=== PATIENT | male | born 1980 | race Caucasian/White ===

== ENCOUNTER 2019-07-12 17:46 | Emergency (ER) | payer BC, OTHER ==
[~2019-07-12] VITALS: Ht 182 cm; Wt 111.0 kg
--- OUTSIDE RECORDS SUMMARY | 2019-07-12 17:54 | XMS REPORT ---
Author Author Florentino Brock [facility] eClinicalWorks Address Unknown Phone Unavailable Care Team Providers Care Framing Inspector Name Role Phone Erlin Brock Unavailable Allergies No Known Allergies Problems Problem Type Condition ICD-9 Code Onset Dates Condition Statu s Problem Mitral valve prolapse 424.0 Active Medications No Known Medications Results No Known Results Summary Purpose eClinicalWorks Submission
--- OUTSIDE RECORDS SUMMARY | 2019-07-12 17:54 | XMS REPORT ---
Author Author Florentino Obando Organization eClinicalWorks Address Unknown Phone Unavailable Care Team Providers Care Brazer Induction Name Role Phone Romulo Obando CP Unavailable Allergies, Adverse Reactions, Alerts Substance Reaction Event Type N.K.D.A. Info Not Available Non Drug Allergy Problems Problem Type Condition ICD-9 Code Onset Dates Condition Statu s Assessment Mitral valve prolapse 424.0 Active Assessment Hypertension 401.9 Active Problem Mitral valve prolapse 424.0 Active Medications Medication Code System Code Instructions Start Date End Date Status Dosage Lisinopril [facility] [place] [address]88 10 MG as directed Once a day Dec 03 14 Active as directed Procedures Procedure Coding System Code Date OFFICE VISITEST PT CPT-4 17373 Dec 03, 2013 Vital Signs Date/Time: Dec 03, 2013 Blood Pressure Systolic 160 mm Hg Height 72 in Weight 230.0 lbs BMI 31.19 Index Blood Pressure Diastolic 90 mm Hg Results No Known Results Summary Purpose eClinicalWorks Submission
--- OUTSIDE RECORDS SUMMARY | 2019-07-12 17:54 | XMS REPORT ---
Author Author Florentino Obando Organization eClinicalWorks Address Unknown Phone Unavailable Care Team Providers Care Millinery Designer Name Role Phone Romulo Obando Unavailable Allergies No Known Allergies Problems Problem Type Condition ICD-9 Code Onset Dates Condition Statu s Assessment Mitral valve prolapse 424.0 Active Problem Mitral valve prolapse 424.0 Active Medications No Known Medications Procedures Procedure Coding System Code Date ECHOCARDIOGRAPHY, TRANSTHORACIC, REAL-TI ME WITH IMAGE DOCUMENTATION (2D), INCLUDES M-MODE RECORDING, WHEN PERFORMED, COMPLETE, WITH CPT-4 93 306 Dec 09, 2013 Results No Known Results Summary Purpose eClinicalWorks Submission
--- OUTSIDE RECORDS SUMMARY | 2019-07-12 17:54 | XMS REPORT | Continuity of Care Document ---
Author Author [facility] Organization [facility] Address Unknown Phone Unavailable Care Team Providers Care Transportation Supervisor Name Role Phone ADELA GIRARD M.D. PCP Insurance Providers Payer Name Policy Number Subscriber Name Relationship Self Pay Insurance Florentino Charles 01 Self / S sara As Patient Chief Complaint and Reason for Visit Chief Complaint Hypertension Reason for Visit Hypertensive urgency Problems Medical Problems Problem Onset Date Status Hypertensive urgency Unknown Active Surgical Problems Problem Onset Date Recorded Date/Time Status Status post knee surgery Unknown 10/11/2013 9:16am Activ e Medications Medication Dose Route Sig Days/Qty Instructions Order Date Disc ontinued Date Status Amoxicillin & Pot Clavulanate 875 Mg PO TWICE A DAY 7 Days 11/26/11 10/11/13 Discontinued Social History Social History Problem Response Recorded Date/Stevie e Smoking Status Never smoker 12/01/2013 7:38am Query Response Start Date Stop Date Smoking Status Never smoker Hospital Discharge Instructions No hospital discharge instructions. Plan of Care Discharge Date 12/01/13 9:54am Disposition 01 HOME, SELF-CARE Condition at Discharge Stable Instructions/Education Provided Chronic Hypertension ( ED) Prescriptions See Medications Section Referrals ADELA GIRARD M.D. Functional Status No functional status results. Allergies, Adverse Reactions, Alerts Allergen Type Severity Reaction Status Last Updated No Known Allergies Active Immunizations No immunization records. Vital Signs Acute Vital Signs Vital Response Date/Time Blood Pressure 153/80 mm Hg Blood Pressure Mean 104 mm Hg Temperature (Fahrenheit) 98.2 degrees F (96.0 - 99.9) Temperature (Calculated Celsius) 36.50142 degrees C Temperature Source Oral Pulse Pulse Rate: ED 62 bpm Respiratory Rate 16 breaths per minute (10 - 20) Height (Feet) 6 ft Height (Inches) 0 in. Weight (Pounds) 219 lbs Ambulatory Vital Signs Vital Response Date/Time Height 5 ft 11 in 10/11/2013 8:57am Weight 237 lbs 10/11/2013 8:57am Blood Pressure 130/85 mm Hg 10/11/2013 8:57am Body Surface Area 2.35 m2 10/11/2013 8:57am Body Mass Index 33.1 kg/m2 10/11/2013 8:57am Results Test Source Date Result Interp. Ref. Range Comments Troponin I December 01, 2013 8:34am 0.00 ng/mL N 0.0- 0.02 Alanine Aminotransferase (ALT/SGPT) November 14, 2001 3:25p m 18 U/L N 5-40 COMMENTS? ROOM 1 Albumin November 14, 2001 3:25pm 4.7 gm/dL N 3.2- 5.0 COMMENTS? ROOM 1 Albumin/Globulin Ratio November 14, 2001 3:25pm 1.7 N 1.4-2.4 COMMENTS? ROOM 1 Alkaline Phosphatase November 14, 2001 3:25pm 59 U/L N 35-125 COMMENTS? ROOM 1 Amylase Level November 14, 2001 3:25pm 42 U/L N 16-108 COMMENTS? ROOM 1 Anion Gap December 01, 2013 8:34am 10.0 N 6-13 Aspartate Amino Transf (AST/SGOT) November 14, 2001 3:25pm 16 U/L N 5-40 COMMENTS? ROOM 1 BUN/Creatinine Ratio December 01, 2013 8:34am 20.2 Band Neutrophils November 14, 2001 3:25pm 1.0 % N 0-7 COMMENTS? ROOM 1 Basophils # (Auto) December 01, 2013 8:34am 0.1 K/uL N 0-0.2 Basophils (%) (Auto) December 01, 2013 8:34am 0.5 % N 0-1 Blood Urea Nitrogen December 01, 2013 8:34am 21 mg/dL N 8-25 Calcium Level December 01, 2013 8:34am 9.0 mg/dL N 8. 2-10.6 Carbon Dioxide Level December 01, 2013 8:34am 25 mEq/L N 22-34 Chloride Level December 01, 2013 8:34am 104 mEq/L N 9 8-116 Cholesterol Level October 25, 2011 12:00am 201 mg/dL H 120-200 Cholesterol Ratio (LDL/HDL) October 25, 2011 12:00am 4.674 Creatinine December 01, 2013 8:34am 1.04 mg/dL N 0.9- 1.6 Eosinophils # (Auto) December 01, 2013 8:34am 0.2 K/uL N 0-0.8 Eosinophils (%) (Auto) December 01, 2013 8:34am 1.6 % N 0-7.0 Globulin November 14, 2001 3:25pm 2.8 gm/dL N 2.0- 3.0 COMMENTS? ROOM 1 Glomerular Filtration Rate Calc December 01, 2013 8:34am > 60 .00 mL/min MULTIPLY RESULT BY 1.210 IF THE PATIENT IS -AMERICANUnits are mL/min/1.73 m2 > 60 Normal kidney function 30-59 Moderately decreased kidney fun ction 15- Severely decreased kidney funct ion <15 End-stage kidney failure HDL Cholesterol October 25, 2011 12:00am 43 mg/dL N 40-80 Hematocrit December 01, 2013 8:34am 41.7 % N 40.0- 54.0 Hemoglobin December 01, 2013 8:34am 14.3 g/dL N 14.0- 18.0 Immature Blood Cells March 19, 2012 12:00am 0.1 K/uL N 0-0.4 Immature Granulocyte # (Auto) December 01, 2013 8:34am 0.04 K /uL N 0-0.40 Immature Granulocyte % (Auto) December 01, 2013 8:34am 0.4 % N 0-0.5 LDL Cholesterol October 25, 2011 12:00am 130 mg/dL H 25-100 Lab Scanned Report November 14, 2011 9:55am Lab Scann ed Report [id number] Lymphocytes # (Auto) December 01, 2013 8:34am 2.5 K/uL N 0.9-5.2 Lymphocytes (%) (Auto) December 01, 2013 8:34am 25.7 % N 16.0-44.0 Lymphocytes (Manual) November 14, 2001 3:25pm 8.0 % PL 21.0-51.0 COMMENTS? ROOM 1 Mean Corpuscular Hemoglobin December 01, 2013 8:34am 30.2 pg N 26.0-33.0 Mean Corpuscular Hemoglobin Concent December 01, 2013 8:34a m 34.3 g/dL N 31.0-36.0 Mean Corpuscular Volume December 01, 2013 8:34am 88.0 fL N 80.0-94.0 Mean Platelet Volume December 01, 2013 8:34am 9.4 fL N 7.0-11.0 Monocytes # (Auto) December 01, 2013 8:34am 0.8 K/uL N 0.16-1.0 Monocytes (%) (Auto) December 01, 2013 8:34am 8.4 % N 2.0-9.0 Monocytes (Manual) November 14, 2001 3:25pm 5.0 % N 2.0-9.0 COMMENTS? ROOM 1 Neutrophils November 14, 2001 3:25pm 86.0 % PH 42 .0-75.0 COMMENTS? ROOM 1 Neutrophils # (Auto) December 01, 2013 8:34am 6.1 K/uL N 1.9-8.0 Neutrophils (%) (Auto) December 01, 2013 8:34am 63.4 % N 42.0-75.0 Nucleated Red Blood Cells # December 01, 2013 8:34am 0.00 K/u L N 0.0-0.012 Nucleated Red Blood Cells % December 01, 2013 8:34am 0.0 /100 WBC N 0-0 Platelet Count December 01, 2013 8:34am 210 K/uL N 1 30-400 Platelet Estimate November 14, 2001 3:25pm Normal NORMAL COMMENTS? ROOM 1 Potassium Level December 01, 2013 8:34am 4.0 mEq/L N 3.5-5.1 RDW Standard Deviation December 01, 2013 8:34am 41.0 fL N 35.1-43.9 Random Glucose December 01, 2013 8:34am 93 mg/dL N 6 5-115 Red Blood Count December 01, 2013 8:34am 4.74 M/uL N 4.60-5.40 Red Cell Distribution Width December 01, 2013 8:34am 12.7 % N 11.5-14.5 Sodium Level December 01, 2013 8:34am 135 mEq/L N 133 -145 Total Bilirubin November 14, 2001 3:25pm 1.2 mg/dL N 0.1-1.3 COMMENTS? ROOM 1 Total Protein November 14, 2001 3:25pm 7.5 gm/dL N 6.0-8.4 COMMENTS? ROOM 1 Triglycerides Level October 25, 2011 12:00am 139 mg/dL N 45-150 VLDL Cholesterol October 25, 2011 12:00am 27.8 N 5-40 White Blood Count December 01, 2013 8:34am 9.6 K/uL N 5.0-10.0 Procedures No known history of procedures. Encounters Encounter Location Date/Time Departed Emergency Room [facility] 4 7:38am Office Visit CHRIS WHITE 10/11/13 9:30am Recent Diagnosis
--- OUTSIDE RECORDS SUMMARY | 2019-07-12 17:54 | XMS REPORT ---
Author Author Florentino Brock [facility] eClinicalWorks Address Unknown Phone Unavailable Care Team Providers Care Legal Specialist Name Role Phone Erlin Brock CP Unavailable Allergies, Adverse Reactions, Alerts Substance Reaction Event Type N.K.D.A. Info Not Available Non Drug Allergy Problems Problem Type Condition ICD-9 Code Onset Dates Condition Statu s Assessment Finger pain 729.5 Active Problem Mitral valve prolapse 424.0 Active Medications No Known Medications Procedures Procedure Coding System Code Date OFFICE VISITEST PT CPT-4 17810 Jan 04, 2014 FINGER 3 VIEW CPT-4 74216 Jan 04, 2014 Vital Signs Date/Time: Jan 04, 2014 Blood Pressure Systolic 126 mm Hg Height 72 in Weight 232 lbs BMI 31.46 Index Blood Pressure Diastolic 82 mm Hg Results Name Result Date Reference Range Unit X ray : Finger 3 view Summary Purpose eClinicalWorks Submission
--- OUTSIDE RECORDS SUMMARY | 2019-07-12 17:54 | XMS REPORT ---
Author Author Florentino Brock [facility] eClinicalWorks Address Unknown Phone Unavailable Care Team Providers Care Diesel Mechanic Apprentice Name Role Phone Erlin Brock Unavailable Allergies No Known Allergies Problems No Known Problems Medications No Known Medications Results No Known Results Summary Purpose eClinicalWorks Submission
--- OUTSIDE RECORDS SUMMARY | 2019-07-12 17:54 | XMS REPORT | Continuity of Care Document ---
Author Author [facility] Address [address] [place] [address] Phone Unavailable Care Team Providers Care Copper Plate Printer Name Role Phone Mer GIRARD PCP Allergies, Adverse Reactions, Alerts No known allergies. Medications Medication Status Dose Units Route Sig Qty Days Start Date End Date Instructions Lisinopril Active 10 Daily Acetaminophen/Hydrocodone Bitart Discontinued 1 Every 6 Hours As Needed for Pain December 30, 2013 5:31pm March 15, 2019 for pain Amoxicillin & Pot Clavulanate Discontinued 875 Twice A Day 7 November 26, 2011 5:04pm October 11, 2013 Cephalexin Discontinued 500 Three Times A Day for . December 30, 2013 5:31pm March 15, 2019 Problems Active Problems Medical Problem Onset Date Status Hypertensive urgency Active Hypertensive urgency Active Finger laceration Active Finger laceration involving tendon Activ e Status post knee surgery Active Procedures Procedure Date Performed Status Computed tomography of heart without con trast with quantitative evaluation of coronary calcium February 05, 2018 completed Relevant Diagnostic Tests and/or Laboratory Data No known relevant diagnostic tests and/or laboratory data. Health Concerns No known health concerns documented Encounters Encounter Location(s) Arrival/Admit Date Discharge/Depart Date Provider(s) Departed Clinic [facility] March 15, 2019 8:49am March 15, 2019 9:35am OLIVERIO CAI PA-C Registered Referred [facility] February 05 8 2:38pm OTHER, DOCTOR Assessments No Assessments Information Available Functional Status No Functional Status information available Goals No Goals Information Available Immunizations No Immunization Information Available Mental Status No Mental Status Information Available Medical Equipment No Medical Equipment Information available Insurance Providers Guarantor Florentino Charles Address [address] [place] [address] Contact Info. Home Phone: Payer Policy Id Coverage Id Subscriber's Name Subscriber Id Effect pascale Date Expiration Date [facility] [id number] Florentino Charles 2011 Social History Smoking Status Status Date of Observation Never smoked tobacco (finding) December 30, 2013 4:2 1pm Observation Status Observation Response Date of Response Smoking Status Never smoker December 30, 2013 4:21pm Assigned Sex Male Vital Signs Vital Reading Result Reference Range Collection Date/ Time Body Temperature 98.0 [degF] (96.0 - 99.9) March 15, 020 9:07am Body Temperature 36.61896 Love March 15 020 9:07am Height 1.0 [in_i] March 15 9:07am Weight 227.0 [lb_av] March 15 9:07am BMI (Body Mass Index) 30.02 kg/m2 March 152019 9:07am Height 71 [in_i] March 15 9:07am Height 180.34 cm March 15 9:07am Weight 237 [lb_av] March 15 9:07am Weight 107.501 kg March 15 9:07am BP Systolic 130 mm[Hg] March 15 9:07am BP Diastolic 85 mm[Hg] March 15 9:07am Body surface area 2.35 m2 March 15, 2019 9:07am BMI (Body Mass Index) 33.1 kg/m2 March 152019 9:07am Hospital Discharge Instructions Additional Instructions Discharge Instructions Provider Instructions Dismiss home You were seen today by OLIVERIO CAI PA-C Follow up with Primary Care Physician in 3-7 days or sooner if your symptoms worsen. PCP Information Erlin Girard M.D. Erlin Girard M.D. , Pt given verbal instructions, declined written copy of instructions
--- OUTSIDE RECORDS SUMMARY | 2019-07-12 17:54 | XMS REPORT ---
Author Author Florentino Brock [facility] Address [address] [place] [address] Care Team Providers Care Tool Storage Attendant Name Role Phone Erlin Brock Unavailable PROBLEMS Type Condition ICD9-CM Code COT50-RD Code Onset Dates Condition S tatus SNOMED Code Problem Mitral valve prolapse 424.0 Active [id number] ALLERGIES Unknown Allergies SOCIAL HISTORY No smoking Hx information available PLAN OF CARE VITAL SIGNS MEDICATIONS Unknown Medications RESULTS No Results PROCEDURES No Known procedures IMMUNIZATIONS No Known Immunizations
--- OUTSIDE RECORDS SUMMARY | 2019-07-12 17:55 | XMS REPORT | Continuity of Care Document ---
Author Organization Unknown Address Unknown Phone Unavailable Allergies Active Description Code Type Severity Reaction Onset Reported/Identified Relationship to Patient Clinical Status Yes No Known Allergies [id number] Dr coburn Allergy N/A N/A Yes No Known Drug Allergies No Kno wn Drug Allergies Drug Allergy Unknown N/A 05/08/2009 Yes No Known Intolerances No Known Intoler ances Drug Allergy Unknown N/A 010 Yes No Allergy Information Drug Allergy N/A N/A 12/06/2010 Yes No Known Allergies No Known Allergies Drug Allergy Unknown N/A 07/29/2016 Yes No Known Drug Allergy Drug Allergy Unknown N/A 01/25/2019 Medications Medication Packaging Start Date St op Date Route Dosage Sig Cipro 500 mg tablet Tablet 08/01/2016 500 mg chavez e 1 (one) Tablet by Oral route daily oxyCODONE 10 mg tablet Table t 08/01/2016 10 mg take 1 (one) Tablet by Oral route daily as needed DOCUSATE SODIUM 01/22/2019 01/22/2019 BIDPRN ACETAMINOPHEN 01/22/2019 Q4HPRN ACETAMINOPHEN 01/22/2019 Q4HPRN SODIUM CHLORIDE 0.9 % 01/22/2019 01/22/2019 PRNIV ALUM-MAG HYDROXIDE-SIMETH 01/22/2019 01/22/2019 Q4HPRN MAGNESIUM HYDROXIDE 01/22/2019 01/22/2019 HSPRN ASPIRIN 01/23/20 19 01/22/2019 ONCE MIDAZOLAM 201801/22/2019 ONCE fentaNYL CITRATE (PF) 01/22/2019 01/22/2019 ONCE aspirin 325 mg tablet box 01/25/2019 02/26/2019 325 mg take 1 (one) Tablet by Oral route daily DOCUSATE SODIUM 01/28/2019 02/03/2019 BIDPRN ACETAMINOPHEN 02/02/2019 Q4HPRN ACETAMINOPHEN 02/03/2019 Q4HPRN ALUM-MAG HYDROXIDE-SIMETH 01/28/2019 02/03/2019 Q4HPRN MAGNESIUM HYDROXIDE 01/28/2019 02/03/2019 HSPRN ASPIRIN 01/29/2001/29/2019 QD ASPIRIN 01/30/2002/03/2019 0700 BUMETANIDE 01/3002/03/2019 QD POTASSIUM CHLORIDE 01/30/2019 01/31/2019 QD POTASSIUM CHLORIDE 01/31/2019 02/03/2019 0700 ACETAMINOPHEN 02/03/2019 Q4HPRN LIDOCAINE HCL 2% 02/02/2019 02/03/2019 PRN ZOLPIDEM 019 02/03/2019 HSPRNRX 1 SODIUM CHLORIDE 0.9 % 02/02/2019 02/03/2019 PRNIV MUPIROCIN 201802/03/2019 [id number] METOPROLOL TARTRATE 02/03/2019 02/03/2019 PREHEART6 MORPHINE 02/05/2019 [id number] N HYDROMORPHONE (PF) 02/03/2019 02/07/2019 [id number] fentaNYL CITRATE (PF) 02/03/2019 02/04/2019 [id number] IPRATROPIUM-ALBUTEROL 02/03/2019 02/07/2019 QIDRT ACETAMINOPHEN 02/07/2019 Q4HPRN SODIUM CHLORIDE 0.9 % 02/03/2019 02/05/2019 PRNIV SODIUM CHLORIDE 0.9 % 02/03/2019 02/05/2019 PRNIV SODIUM CHLORIDE 0.9 % 02/03/2019 02/04/2019 PRNIV DOPAMINE IN D5W 02/03/2019 02/05/2019 PRNIV LIDOCAINE (PF) 2% 02/03/2019 02/05/2019 PRN NITROGLYCERIN IN D5W 02/03/2019 02/05/2019 PRNIV DEXTROSE 5% IN WATER (D5W) 02/03/2019 02/05/2019 PRNIV HYDROCODONE-ACET 5-325MG 02/03/2019 02/07/2019 Q3HPRN SODIUM CHLORIDE 0.9 % 02/03/2019 02/05/2019 FLUSHER CALCIUM GLUCONATE 02/03/2019 02/05/2019 PRN ONDANSETRON HCL 02/03/2019 02/07/2019 Q6HPRN SODIUM CHLORIDE 02/03/2019 02/05/2019 PRNIV POTASSIUM CHLORIDE 02/03/2019 02/05/2019 PRN MAGNESIUM SULFATE IN D5W 02/03/2019 02/07/2019 PRN DEXTROSE 50% IN WATER (D50W) 02/03/2019 02/07/2019 PRN METOCLOPRAMIDE 1 04/06/2018 02/07/2019 Q6HPRN ALUM-MAG HYDROXIDE-SIMETH 02/03/2019 02/07/2019 Q4HPRN PANTOPRAZOLE 02/05/2019 QDPRN INSULIN (REGULAR) 02/03/2019 02/07/2019 PRN ALBUMIN, HUMAN 5% 500ML 02/03/2019 02/05/2019 PRN BISACODYL 201802/07/2019 PRN MAGNESIUM HYDROXIDE 02/03/2019 02/07/2019 PRN PROPOFOL 019 02/03/2019 C SODIUM CHLORIDE 0.9 % 02/03/2019 02/05/2019 PRNIV PANTOPRAZOLE 02/07/2019 ACB ASPIRIN 02/04/20 19 02/07/2019 0700 CEFAZOLIN 201802/05/2019 Q8H POLYETHYLENE GLYCOL 3350 02/03/2019 02/07/2019 QD SENNOSIDES 02/0302/07/2019 QD METOCLOPRAMIDE 1 04/06/2018 02/05/2019 Q6SET DOCUSATE SODIUM 02/03/2019 02/07/2019 BID METOPROLOL TARTRATE 02/03/2019 02/04/2019 BID SODIUM CHLORIDE 0.9 % 02/03/2019 02/03/2019 ONCE AMIODARONE IN DEXTROSE 5% 02/03/2019 02/04/2019 C AMIODARONE IN DEXTROSE 5% 02/04/2019 02/04/2019 PRNIV FUROSEMIDE 02/0402/04/2019 ONCE HEPARIN, PORCINE (PF) 02/04/2019 02/07/2019 Q12H INSULIN NOVOLOG 02/04/2019 02/04/2019 ONCE FUROSEMIDE 02/0402/04/2019 ONCE INSULIN NOVOLOG 02/04/2019 02/04/2019 ONCE METOCLOPRAMIDE 1 04/08/2018 02/07/2019 Q6HPRN INSULIN NOVOLOG 02/05/2019 02/05/2019 TIDWM FUROSEMIDE 02/0502/07/2019 BID4PM KETOROLAC 201802/05/2019 ONCE METOPROLOL TARTRATE 02/05/2019 02/06/2019 BID INSULIN NOVOLOG 02/05/2019 02/05/2019 TIDWM POTASSIUM CHLORIDE 02/06/2019 02/06/2019 ONCE METOPROLOL TARTRATE 02/06/2019 02/06/2019 ONCE FUROSEMIDE 02/0602/06/2019 ONCE KETOROLAC 201802/07/2019 Q6H METOPROLOL TARTRATE 02/06/2019 02/07/2019 BID POTASSIUM CHLORIDE 02/07/2019 02/07/2019 ONCE POTASSIUM CHLORIDE 02/07/2019 02/07/2019 ONCE metoprolol tartrate 25 mg tablet Tablet 02/26/2019 25 mg take 0.5 (1/2) Tablet by Oral route two times per day HYDROcodone 5 mg-acetaminophen 325 mg tabl et Tablet 02/26/2019 03/02/2019 5-325 mg take 1 (one) Tablet by Oral route every 4 to 6 hours as needed Problems Date Dx Coded Attending Type Code Diagnosis Diagnosed By 06/02/2013 Final 719.06 JOINT EFFUSION-LOWER LEG 06/02/2013 Admitting 719.46 JOINT PAIN-LOWER LEG 07/30/2016 BRAULIO HILL N13.2 Hydronephrosis with renal and ureteral calculous obstruction BRAULIO HILL 07/30/2016 BRAULIO HILL N20.1 Calculus of ureter BRAULIO HILL 07/30/2016 BRAULIO HILL N R94.4 Abnormal results of kidney function studies BRAULIO HILL 07/30/2016 BRAULIO HILL N13.2 Hydronephrosis with renal and ureteral calculous obstruction BRAULIO HILL 07/30/2016 BRAULIO HILL N20.1 Calculus of ureter BRAULIO HILL 08/22/2016 BRAULIO HILL N N20.1 Calculus of ureter TONY ELMORE 08/22/2016 BRAULIO HILL Z46.6 Encounter for fitting and adjustment of urinary device TONY ELMORE 09/11/2016 W 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, bilateral 09/12/2016 W 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, bilateral 02/26/2019 Khicha, Sigifredo I34.0 Nonrheumatic mitral (valve) insufficiency Khicha, Sigifredo 02/26/2019 Khicha, Sigifredo I50.9 Heart failure, unspecified Khicha, Sigifredo 02/26/2019 Khicha, Sigifredo I34.0 Nonrheumatic mitral (valve) insufficiency Khicha, Sigifredo 02/26/2019 Khicha, Sigifredo I50.9 Heart failure, unspecified Khicha, Sigifredo 03/01/2019 Khicha, Sigifredo I34.0 Nonrheumatic mitral (valve) insufficiency Khicha, Sigifredo 03/01/2019 Khicha, Sigifredo I50.9 Heart failure, unspecified Khicha, Sigifredo 03/01/2019 Khicha, Sigifredo I34.0 Nonrheumatic mitral (valve) insufficiency Khicha, Sigifredo 03/01/2019 Khicha, Sigifredo I50.9 Heart failure, unspecified Khicha, Sigifredo 03/03/2019 Khicha, Sigifredo I10 Essential (primary) hypertension Khicha, 03/03/2019 Khicha, Sigifredo I34.0 Nonrheumatic mitral (valve) insufficiency Khicha, Sigifredo 03/03/2019 Khicha, Sigifredo M19.90 Unspecified osteoarthritis, unspecified site Khicha, Sigifredo 03/03/2019 Khicha, Sigifredo Z82.49 Family history of ischemic heart disease and other diseases of the circulatory system Khicha, Sigifredo 03/03/2019 Khicha, Sigifredo Z87.891 Personal history of nicotine dependence Khicha, 03/04/2019 Khicha, Sigifredo I10 Essential (primary) hypertension Khicha, Sigifredo 03/04/2019 Khicha, Sigifredo I34.0 Nonrheumatic mitral (valve) insufficiency Khicha, Sigifredo 03/04/2019 Khicha, Sigifredo M19.90 Unspecified osteoarthritis, unspecified site Khicha, Sigifredo 03/04/2019 Sigifredo Jordan Z82.49 Family history of ischemic heart disease and other diseases of the circulatory system Sigifredo Jordan 03/04/2019 Sigifredo Jordan Z87.891 Personal history of nicotine dependence Sigifredo Jordan 03/15/2019 OLIVERIO CAI PA-C Other Z76.89 [facility] 03/15/2019 OLIVERIO CAI PA-C Other Z98.890 OTHER SPECIFIED POSTPROCEDURAL STATES 03/19/2019 Sigifredo Jordan Z09 Encounter for follow-up examination after completed treatment for conditions other than malignant neoplasm Sigifredo Jordan 04/16/2019 ELEUTERIO HERNANDEZ I34. 1 NONRHEUMATIC MITRAL (VALVE) PROLAPSE ELEUTERIO HERNANDEZ 04/16/2019 ELEUTERIO HERNANDEZ Z87. 891 PERSONAL HISTORY OF NICOTINE DEPENDENCE ELEUTERIO HERNANDEZ Procedures Code Description [place] [address] INIT IAL OBSERVATION CARE, PER DAY, FOR THE EVALUATION AND MANAGEMENT OFA PATIENT, WHICH REQUIRES THE BRAULIO HILL 07/30/2016 52515 CYST OURETHROSCOPY, WITH INSERTION OF INDWELLING URETERAL STENT (EG,SMALL OR DOUBLE-J TYPE) BRAULIO HILL 07/30/2016 73695 CYST OURETHROSCOPY, WITH URETEROSCOPY AND/OR PYELOSCOPY; WITH REMOVAL ORMANIPULATION OF CALCULUS (URE BRAULIO HILL 07/30/2016 25092 UROG MIREYA, RETROGRADE, WITH OR WITHOUT KUB BRAULIO HILL 07/30/2016 65317 OFFI CE OR OTHER OUTPATIENT VISIT FOR THE EVALUATION AND MANAGEMENT OF ANESTABLISHED PATIENT, THAT PIYUSH TONY ELMORE Emre 08/22/2016 62902 UROG MIREYA, RETROGRADE, WITH OR WITHOUT KUB BRAULIO HILL 08/28/2016 22859 EYE EXAM, NEW PATIENT 09/11/2016 45449 REFR ACTION 09/11/2016 V2020 Visi on svcs frames purchases 09/12/2016 V2103 Sphe rocylindr 4.00d/12-2.00d 09/12/2016 V2744 Tint photochromatic lens/es 09/12/2016 V2750 Anti -reflective coating 09/12/2016 V2782 Lens , 1.54-1.65 p/1.60-1.79g 09/12/2016 V2020 Visi on svcs frames purchases 04/15/2017 V2103 Sphe rocylindr 4.00d/12-2.00d 04/15/2017 V2750 Anti -reflective coating 04/15/2017 V2755 UV l ens/es 04/15/2017 V2782 Lens , 1.54-1.65 p/1.60-1.79g 04/15/2017 28833 [facility] care, per day, for the evaluation and management of a patient which requires these Sigifredo Jordan 02/26/2019 46452 Valv uloplasty, mitral valve, with cardiopulmonary bypass; radical reconstruction, with or without ri Kobeichmedhat, Sigifredo 02/26/2019 21599 Offi ce or other outpatient visit for the evaluation and management of a new patient, which requires Sigifredo Jordan 03/03/2019 24305 Post operative follow-up visit, normally included in the surgical package, to indicate that an evalua Sigifredo Jordan 03/19/2019 37960 Valv uloplasty, mitral valve, with cardiopulmonary bypass; radical reconstruction, with or without ri Kobeicha, Sigifredo 03/25/2019 99654 Offi ce or other outpatient visit for the evaluation and management of a new patient, which requires Sigifredo Jordan 03/25/2019 12970 [facility] care, per day, for the evaluation and management of a patient which requires these Sigifredo Jordan 03/25/2019 Results Test Result Range CBC W/DIFF - 07/24/14 21:43 EOSINOPHIL # 0.2 k/cumm 0.1-0.5 EOSINOPHIL % 2 % 2-4 GRANULOCYTE # 6.6 k/cumm 2.0-9.0 GRANULOCYTE % 69 % 50-75 LYMPHOCYTE # 1.9 k/cumm 1.0-4.0 LYMPHOCYTE % 19 % 20-30 MEAN CELL HGB 29.8 pg 27.0-33.0 MEAN CELL HGB CONCENTRATION 33.9 g/dL 32 .0-37.0 MEAN CELL VOLUME 87.8 fl 80.0-100.0 MONOCYTE # 1.0 k/cumm 0.1-1.0 MONOCYTE % 10 % 4-6 RED BLOOD CELL 4.93 m/cumm 4.00-6.00 RED CELL DISTRIBUTION WIDTH 13.8 % 11 .0-15.6 WHITE BLOOD CELL 9.7 k/cumm 5.0-10.0 HEMOGLOBIN 14.7 gm/dL 14.0-18.0 HEMATOCRIT 43.3 % 40.0-54.0 PLATELET COUNT 230 k/cumm 150-400 URINALYSIS, ROUTINE - 07/29/16 01:40 UA LEUKOCYTE ESTERASE DIPSTICK NEGATIVE NEGATIVE UA NITRITE DIPSTICK NEGATIVE NEGATIVE UA PROTEIN DIPSTICK NEGATIVE NEGATIVE UA GLUCOSE DIPSTICK NEGATIVE NEGATIVE UA KETONE DIPSTICK NEGATIVE NEGATIVE UA UROBILINOGEN DIPSTICK NORMAL JD L UA BILIRUBIN DIPSTICK NEGATIVE NEGATIVE UA BLOOD DIPSTICK 3+ NEGATIVE UA SPECIFIC GRAVITY >= 1.030 1.015-1.02 5 UR PH 5.5 5.0-7.0 UA MICROSCOPIC - 07/29/16 01:40 UA BACTERIA 3+ NEGATIVE UA MUCUS 3+ NEG TO 1+ UA RBC 20-50 rbc/hpf 0 - 3 UA VOLUME FOR EXAM 12.0 mL (12mL STD) UA WBC 0-1 wbc/hpf 0 - 5 CHEM/HEM PROFILE-BEDSIDE - 07/29/16 01:4 4 POTASSIUM 3.6 mmol/L 3.5-5.3 METHOD Bedside ANION GAP 17 mmol/L 10-20 METHOD Bedside GLUCOSE 122 mg/dL 70-99 BLOOD UREA NITROGEN 21 mg/dL 7-20 CREATININE 1.2 mg/dL 0.7-1.3 HEMOGLOBIN 15.6 gm/dL 14.0-18.0 HEMATOCRIT 46.0 % 40.0-54.0 SODIUM 141 mmol/L 135-148 CHLORIDE 107 mmol/L 98-110 CARBON DIOXIDE 21 mmol/L 21-32 CALCIUM IONIZED 4.4 mg/dL 4.5-5.3 CBC W/DIFF - 07/29/16 18:16 MEAN CELL HGB 29.5 pg 27.0-33.0 MEAN CELL HGB CONCENTRATION 32.8 g/dL 32 .0-37.0 MEAN CELL VOLUME 89.8 fl 80.0-100.0 RED BLOOD CELL 5.32 m/cumm 4.00-6.00 RED CELL DISTRIBUTION WIDTH 13.8 % 11 .0-15.6 WHITE BLOOD CELL 20.1 k/cumm 5.0-10.0 HEMOGLOBIN 15.7 gm/dL 14.0-18.0 HEMATOCRIT 47.8 % 40.0-54.0 PLATELET COUNT 262 k/cumm 150-400 MANUAL DIFF(R) - 07/29/16 18:16 DIFFERENTIAL MANUAL RBC MORPH Note METABOLIC PANEL, COMPREHN - 07/29/16 18: 16 POTASSIUM 4.5 mmol/L 3.5-5.3 EST GFR (MDRD) 49 mL/min > 59 ANION GAP 11 mmol/L 5-15 GLUCOSE 103 mg/dL 70-99 CALCIUM 9.4 mg/dL 8.5-10.1 BLOOD UREA NITROGEN 21 mg/dL 7-20 CREATININE 1.6 mg/dL 0.7-1.3 SODIUM 145 mmol/L 135-148 CHLORIDE 107 mmol/L 98-110 AST/SGOT 22 Units/L 10-37 ALT/SGPT 23 Units/L < 66 CARBON DIOXIDE 27 mmol/L 21-32 TOTAL PROTEIN 8.2 gm/dL 6.4-8.2 ALBUMIN 4.5 gm/dL 3.4-5.0 BILI TOTAL 0.6 mg/dL 0.0-1.0 ALKALINE PHOSPHATASE TOTAL 42 IU/L 45- 117 URINALYSIS, ROUTINE - 07/29/16 18:16 UA LEUKOCYTE ESTERASE DIPSTICK NEGATIVE NEGATIVE UA NITRITE DIPSTICK NEGATIVE NEGATIVE UA PROTEIN DIPSTICK TRACE NEGATIVE UA GLUCOSE DIPSTICK NEGATIVE NEGATIVE UA KETONE DIPSTICK TRACE NEGATIVE UA UROBILINOGEN DIPSTICK NORMAL JD L UA BILIRUBIN DIPSTICK NEGATIVE NEGATIVE UA BLOOD DIPSTICK 2+ NEGATIVE UA SPECIFIC GRAVITY 1.034 1.015-1.02 5 UR PH 5.0 5.0-7.0 UA MICROSCOPIC - 07/29/16 18:16 UA AMORPHOUS SEDIMENT 1+ UA MUCUS 3+ NEG TO 1+ UA RBC 0-3 rbc/hpf 0 - 3 UA VOLUME FOR EXAM 12.0 mL (12mL STD) UA WBC 0 wbc/hpf 0 - 5 CALCULI, ANALYSIS - 07/29/16 21:23 CA OXALATE DIHYDRATE 25 % () CA OXALATE MONOHYDRATE 65 % () CALCIUM PHOSPHATE 10 % () COLOR Cote () COMPOSITION Note () PLEASE NOTE Note () NIDUS No Nidus visualized () SIZE 3x1x1 mm () WEIGHT 10.0 mg () COMMENT Note () CHEM/HEM PROFILE-BEDSIDE - 08/01/16 21:1 8 POTASSIUM 3.5 mmol/L 3.5-5.3 METHOD Bedside ANION GAP 19 mmol/L 10-20 METHOD Bedside GLUCOSE 105 mg/dL 70-99 BLOOD UREA NITROGEN 17 mg/dL 7-20 CREATININE 1.1 mg/dL 0.7-1.3 HEMOGLOBIN 13.9 gm/dL 14.0-18.0 HEMATOCRIT 41.0 % 40.0-54.0 SODIUM 142 mmol/L 135-148 CHLORIDE 101 mmol/L 98-110 CARBON DIOXIDE 26 mmol/L 21-32 CALCIUM IONIZED 4.7 mg/dL 4.5-5.3 URINALYSIS, ROUTINE - 08/01/16 21:21 UA LEUKOCYTE ESTERASE DIPSTICK NEGATIVE NEGATIVE UA NITRITE DIPSTICK NEGATIVE NEGATIVE UA PROTEIN DIPSTICK 1+ NEGATIVE UA GLUCOSE DIPSTICK NEGATIVE NEGATIVE UA KETONE DIPSTICK NEGATIVE NEGATIVE UA UROBILINOGEN DIPSTICK NORMAL JD L UA BILIRUBIN DIPSTICK NEGATIVE NEGATIVE UA BLOOD DIPSTICK 3+ NEGATIVE UA SPECIFIC GRAVITY 1.020 1.015-1.02 5 UR PH 5.0 5.0-7.0 UA MICROSCOPIC - 08/01/16 21:21 UA EPITHELIAL CELLS 1+ epi/hpf 0 - 1+ UA MUCUS 1+ NEG TO 1+ UA RBC 10-20 rbc/hpf 0 - 3 UA VOLUME FOR EXAM 12.0 mL (12mL STD) UA WBC 0 wbc/hpf 0 - 5 CBC NO DIFF (HEMOGRAM) - 01/22/19 09:04 WBC - WHITE CELL COUNT 7.0 X10(3 ) uL 4.5- 11.0 RBC - RED CELL COUNT 5.20 X10( 6) uL 4.60-6.20 PLATELET COUNT 220 X10(3 ) uL 150- 450 HEMOGLOBIN 15.0 g/dl 13.5-18.0 HEMATOCRIT 46.5 % 40.0-54.0 MCV 89.4 fL 80.0-96.0 MCH 29 pg 27-31 MCHC 32.3 % 32.0-36.0 LIPID PANEL - 01/22/19 09:04 CHOLESTEROL 198 mg/dl <=199 HDL CHOLESTEROL 45 mg/dl 40-60 TRIGLYCERIDES 95 mg/dl <=200 LDL, CALCULATED 134.0 mg/ dl 0.0- 99.0 VLDL, CALCULATED 19.0 mg/d l 0.0- 130.0 CARDIAC RISK 4 CMP - COMPREHENSIVE METABOLIC PANEL - 09:04 GLUCOSE 93 mg/dl 74-106 BUN 19 mg/dl 7-18 CREATININE 1.01 mg/d l 0.70- 1.30 SODIUM (NA) 140 mEq/L 136-146 POTASSIUM, BLOOD 4.2 mEq/L 3.5-5.1 CHLORIDE 106 mEq/L 98-107 CO2 (BICARBONATE) 25 mEq/L 21-32 CALCIUM 8.3 mg/dl 8.5-10.1 ALBUMIN, SERUM 3.7 g/dl 3.4-5.0 PROTEIN, TOTAL 6.8 g/dl 6.4-8.2 AST (SGOT) 15 U/L 15-37 ALT (SGPT) 23 U/L 16-63 ALK PHOS 38 U/L 46-116 BILIRUBIN, TOTAL 0.4 mg/dl 0.2-1.0 eGFR mL/min >=59 HOLD SPECIMEN FOR BLOOD BANK - 01/22/19 09:04 HOLD SPECIMEN FOR BLOOD BANK [facility] HOLD SPECIMEN FOR BLOOD BANK - 01/28/19 19:00 HOLD SPECIMEN FOR BLOOD BANK [facility] CBC NO DIFF (HEMOGRAM) - 01/28/19 19:00 WBC - WHITE CELL COUNT 8.4 X10(3 ) uL 4.5- 11.0 RBC - RED CELL COUNT 5.44 X10( 6) uL 4.60-6.20 PLATELET COUNT 212 X10(3 ) uL 150- 450 HEMOGLOBIN 15.5 g/dl 13.5-18.0 HEMATOCRIT 48.3 % 40.0-54.0 MCV 88.8 fL 80.0-96.0 MCH 29 pg 27-31 MCHC 32.1 % 32.0-36.0 PROBNP - 01/28/19 19:00 PRO BNP 81 pg/ml <=125 CMP - COMPREHENSIVE METABOLIC PANEL - 19:00 GLUCOSE 90 mg/dl 74-106 BUN 20 mg/dl 7-18 CREATININE 1.02 mg/d l 0.70- 1.30 SODIUM (NA) 142 mEq/L 136-146 POTASSIUM, BLOOD 3.9 mEq/L 3.5-5.1 CHLORIDE 107 mEq/L 98-107 CO2 (BICARBONATE) 25 mEq/L 21-32 CALCIUM 8.6 mg/dl 8.5-10.1 ALBUMIN, SERUM 3.9 g/dl 3.4-5.0 PROTEIN, TOTAL 7.2 g/dl 6.4-8.2 AST (SGOT) <10 U/L 15-37 ALT (SGPT) 25 U/L 16-63 ALK PHOS 41 U/L 46-116 BILIRUBIN, TOTAL 0.4 mg/dl 0.2-1.0 eGFR mL/min >=59 MRSA SCREEN, INFECTION CONTROL - 9 20:41 MRSA Screen by Culture Source: Nares Collected: 01/29/19 20:41 CBC NO DIFF (HEMOGRAM) - 01/30/19 03:00 WBC - WHITE CELL COUNT 8.9 X10(3 ) uL 4.5- 11.0 RBC - RED CELL COUNT 5.18 X10( 6) uL 4.60-6.20 PLATELET COUNT 228 X10(3 ) uL 150- 450 HEMOGLOBIN 14.7 g/dl 13.5-18.0 HEMATOCRIT 46.9 % 40.0-54.0 MCV 90.5 fL 80.0-96.0 MCH 28 pg 27-31 MCHC 31.3 % 32.0-36.0 BMP - BASIC METABOLIC PANEL - 01/30/19 0 3:00 GLUCOSE 102 mg/dl 74-106 BUN 15 mg/dl 7-18 CREATININE 1.09 mg/d l 0.70- 1.30 SODIUM (NA) 141 mEq/L 136-146 POTASSIUM, BLOOD 4.2 mEq/L 3.5-5.1 CHLORIDE 106 mEq/L 98-107 CO2 (BICARBONATE) 25 mEq/L 21-32 CALCIUM 8.0 mg/dl 8.5-10.1 eGFR mL/min >=59 A1C - 01/30/19 03:00 HEMOGLOBIN A1C 5.3 % 4.5-6.2 HOLD SPECIMEN FOR BLOOD BANK - 01/31/19 05:45 HOLD SPECIMEN FOR BLOOD BANK [facility] CBC NO DIFF (HEMOGRAM) - 01/31/19 05:45 WBC - WHITE CELL COUNT 9.2 X10(3 ) uL 4.5- 11.0 RBC - RED CELL COUNT 5.38 X10( 6) uL 4.60-6.20 PLATELET COUNT 228 X10(3 ) uL 150- 450 HEMOGLOBIN 15.4 g/dl 13.5-18.0 HEMATOCRIT 48.3 % 40.0-54.0 MCV 89.8 fL 80.0-96.0 MCH 29 pg 27-31 MCHC 31.9 % 32.0-36.0 MAGNESIUM - 01/31/19 05:45 MAGNESIUM 2.0 mg/dl 1.8-2.4 [facility] - BASIC METABOLIC PANEL - 01/31/19 0 5:45 GLUCOSE 94 mg/dl 74-106 BUN 20 mg/dl 7-18 CREATININE 1.02 mg/d l 0.70- 1.30 SODIUM (NA) 138 mEq/L 136-146 POTASSIUM, BLOOD 4.1 mEq/L 3.5-5.1 CHLORIDE 104 mEq/L 98-107 CO2 (BICARBONATE) 27 mEq/L 21-32 CALCIUM 8.4 mg/dl 8.5-10.1 eGFR mL/min >=59 [facility] - BASIC METABOLIC PANEL - 02/02/19 0 5:25 GLUCOSE 96 mg/dl 74-106 BUN 20 mg/dl 7-18 CREATININE 1.04 mg/d l 0.70- 1.30 SODIUM (NA) 139 mEq/L 136-146 POTASSIUM, BLOOD 4.0 mEq/L 3.5-5.1 CHLORIDE 103 mEq/L 98-107 CO2 (BICARBONATE) 29 mEq/L 21-32 CALCIUM 9.0 mg/dl 8.5-10.1 eGFR mL/min >=59 TYPE AND SCREEN - 02/02/19 10:40 TTS ARC PTT - 02/02/19 10:40 PTT 29.0 secs 23.0-33.0 INR (PROTIME) - 02/02/19 10:40 INR 0.90 0.90-1.40 CBC NO DIFF (HEMOGRAM) - 02/02/19 10:40 WBC - WHITE CELL COUNT 10.0 X10( 3) uL 4.5- 11.0 RBC - RED CELL COUNT 5.83 X10( 6) uL 4.60-6.20 PLATELET COUNT 258 X10(3 ) uL 150- 450 HEMOGLOBIN 16.7 g/dl 13.5-18.0 HEMATOCRIT 50.9 % 40.0-54.0 MCV 87.3 fL 80.0-96.0 MCH 29 pg 27-31 MCHC 32.8 % 32.0-36.0 HOLD SPECIMEN FOR BLOOD BANK - 02/02/19 10:40 HOLD SPECIMEN FOR BLOOD BANK ARC ARC URINALYSIS, DIPSTICK ONLY - 02/02/19 12: 06 COLOR LT STR STRAW CLARITY/APPEARANCE CLEAR CLEAR UROBILINOGEN (URINALYSIS) 0.2 E.U./dL E.U./dL NORMAL SP GRAV 1.015 1.005-1.025 PH 5.5 5.0-8.0 LEUKO NEG qualitative NEG NITRITE NEG qualitative NEG PROTEIN NEG mg/dL NEG. GLUCOSE NEG mg/dL NEG KETONES NEG mg/dL NEG BILIRUBIN NEG qualitative NEG BLOOD NEGATIVE qualitative NEGATIVE GLUCOSE, ACCUCHEK - 02/03/19 06:56 GLUCOSE (ACCUCHEK) 91 mg/dl 74-105 I-STAT EG 7+ - 02/03/19 06:58 I-STAT NA 138 mmol/ L 138-146 I-STAT K 4.1 mmol/ L 3.5-4.9 I-STAT HEMATOCRIT 43 % PCV 38-51 I-STAT HEMOGLOBIN 14.6 g/dl 12.0-17.0 I-STAT IONIZED CALCIUM 1.20 mmol /L 1.12- 1.32 I-STAT PH 7.38 7.35-7.45 I-STAT PCO2 49 mmHg 35-45 I-STAT PO2 277 mmHg 80-105 I-STAT TCO2 30 mmol/L 23-27 I-STAT BASE EXCESS 2 mmol/L -2-3 I-STAT O2 SATURATION 100 % 95-98 I-STAT FiO2 I-STAT HCO3 29 mmol/L 22-26 GLUCOSE, ACCUCHEK - 02/03/19 08:06 GLUCOSE (ACCUCHEK) 107 mg/dl 74-105 I-STAT EG 7+ - 02/03/19 08:08 I-STAT NA 134 mmol/ L 138-146 I-STAT K 4.6 mmol/ L 3.5-4.9 I-STAT HEMATOCRIT 38 % PCV 38-51 I-STAT HEMOGLOBIN 12.9 g/dl 12.0-17.0 I-STAT IONIZED CALCIUM 1.14 mmol /L 1.12- 1.32 I-STAT PH 7.34 7.35-7.45 I-STAT PCO2 48 mmHg 35-45 I-STAT PO2 352 mmHg 80-105 I-STAT TCO2 27 mmol/L 23-27 I-STAT BASE EXCESS -1 mmol/L -2-3 I-STAT O2 SATURATION 100 % 95-98 I-STAT FiO2 I-STAT HCO3 26 mmol/L 22-26 GLUCOSE, ACCUCHEK - 02/03/19 08:30 GLUCOSE (ACCUCHEK) 85 mg/dl 74-105 I-STAT EG 7+ - 02/03/19 08:32 I-STAT NA 134 mmol/ L 138-146 I-STAT K 5.4 mmol/ L 3.5-4.9 I-STAT HEMATOCRIT 35 % PCV 38-51 I-STAT HEMOGLOBIN 11.9 g/dl 12.0-17.0 I-STAT IONIZED CALCIUM 0.98 mmol /L 1.12- 1.32 I-STAT PH 7.39 7.35-7.45 I-STAT PCO2 40 mmHg 35-45 I-STAT PO2 270 mmHg 80-105 I-STAT TCO2 25 mmol/L 23-27 I-STAT BASE EXCESS -1 mmol/L -2-3 I-STAT O2 SATURATION 100 % 95-98 I-STAT FiO2 I-STAT HCO3 24 mmol/L 22-26 GLUCOSE, ACCUCHEK - 02/03/19 08:59 GLUCOSE (ACCUCHEK) 90 mg/dl 74-105 I-STAT EG 7 - 02/03/19 09:06 I-STAT NA 134 mmol/ L 138-146 I-STAT K 5.9 mmol/ L 3.5-4.9 I-STAT HEMATOCRIT 37 % PCV 38-51 I-STAT HEMOGLOBIN 12.6 g/dl 12.0-17.0 I-STAT IONIZED CALCIUM 1.03 mmol /L 1.12- 1.32 I-STAT PH 7.33 7.35-7.45 I-STAT PCO2 47 mmHg 35-45 I-STAT PO2 268 mmHg 80-105 I-STAT TCO2 26 mmol/L 23-27 I-STAT BASE EXCESS -1 mmol/L -2-3 I-STAT O2 SATURATION 100 % 95-98 I-STAT FiO2 I-STAT HCO3 25 mmol/L 22-26 GLUCOSE, ACCUCHEK - 02/03/19 09:29 GLUCOSE (ACCUCHEK) 145 mg/dl 74-105 I-STAT EG 7+ - 02/03/19 09:31 I-STAT NA 136 mmol/ L 138-146 I-STAT K 5.2 mmol/ L 3.5-4.9 I-STAT HEMATOCRIT 35 % PCV 38-51 I-STAT HEMOGLOBIN 11.9 g/dl 12.0-17.0 I-STAT IONIZED CALCIUM 1.01 mmol /L 1.12- 1.32 I-STAT PH 7.30 7.35-7.45 I-STAT PCO2 47 mmHg 35-45 I-STAT PO2 255 mmHg 80-105 I-STAT TCO2 24 mmol/L 23-27 I-STAT BASE EXCESS -3 mmol/L -2-3 I-STAT O2 SATURATION 100 % 95-98 I-STAT FiO2 I-STAT HCO3 23 mmol/L 22-26 Tissue for Pathology - 02/03/19 09:42 FOSTER Liam Vanessa DO, Medical GLUCOSE, ACCUCHEK - 02/03/19 09:59 GLUCOSE (ACCUCHEK) 91 mg/dl 74-105 I-STAT EG + - 02/03/19 10:02 I-STAT NA 138 mmol/ L 138-146 I-STAT K 5.1 mmol/ L 3.5-4.9 I-STAT HEMATOCRIT 33 % PCV 38-51 I-STAT HEMOGLOBIN 11.2 g/dl 12.0-17.0 I-STAT IONIZED CALCIUM 0.99 mmol /L 1.12- 1.32 I-STAT PH 7.35 7.35-7.45 I-STAT PCO2 40 mmHg 35-45 I-STAT PO2 402 mmHg 80-105 I-STAT TCO2 23 mmol/L 23-27 I-STAT BASE EXCESS -3 mmol/L -2-3 I-STAT O2 SATURATION 100 % 95-98 I-STAT FiO2 I-STAT HCO3 22 mmol/L 22-26 PLATELET COUNT - 02/03/19 10:30 PLATELET COUNT 140 X10(3 ) uL 150- 450 GLUCOSE, ACCUCHEK - 02/03/19 10:30 GLUCOSE (ACCUCHEK) 124 mg/dl 74-105 FIBRINOGEN - 02/03/19 10:30 FIBRINOGEN 210 mg/dl 200-400 INR (PROTIME) - 02/03/19 10:30 INR 1.37 0.90-1.40 PTT - 02/03/19 10:30 PTT 31.2 secs 23.0-33.0 I-STAT EG 7+ - 02/03/19 10:32 I-STAT NA 137 mmol/ L 138-146 I-STAT K 4.3 mmol/ L 3.5-4.9 I-STAT HEMATOCRIT 34 % PCV 38-51 I-STAT HEMOGLOBIN 11.6 g/dl 12.0-17.0 I-STAT IONIZED CALCIUM 1.21 mmol /L 1.12- 1.32 I-STAT PH 7.39 7.35-7.45 I-STAT PCO2 39 mmHg 35-45 I-STAT PO2 267 mmHg 80-105 I-STAT TCO2 25 mmol/L 23-27 I-STAT BASE EXCESS -1 mmol/L -2-3 I-STAT O2 SATURATION 100 % 95-98 I-STAT FiO2 I-STAT HCO3 24 mmol/L 22-26 CBC NO DIFF (HEMOGRAM) - 02/03/19 11:42 WBC - WHITE CELL COUNT 13.3 X10( 3) uL 4.5- 11.0 RBC - RED CELL COUNT 4.46 X10( 6) uL 4.60-6.20 PLATELET COUNT 152 X10(3 ) uL 150- 450 HEMOGLOBIN 12.8 g/dl 13.5-18.0 HEMATOCRIT 39.5 % 40.0-54.0 MCV 88.6 fL 80.0-96.0 MCH 29 pg 27-31 MCHC 32.4 % 32.0-36.0 BMP - BASIC METABOLIC PANEL - 02/03/19 1 1:42 GLUCOSE 83 mg/dl 74-106 BUN 20 mg/dl 7-18 CREATININE 1.05 mg/d l 0.70- 1.30 SODIUM (NA) 140 mEq/L 136-146 POTASSIUM, BLOOD 4.3 mEq/L 3.5-5.1 CHLORIDE 109 mEq/L 98-107 CO2 (BICARBONATE) 27 mEq/L 21-32 CALCIUM 8.5 mg/dl 8.5-10.1 eGFR mL/min >=59 MAGNESIUM - 02/03/19 11:42 MAGNESIUM 3.0 mg/dl 1.8-2.4 I-STAT 6+ - 02/03/19 11:45 I-STAT NA mmol/L 138-146 I-STAT K 4.3 mmol/ L 3.5-4.9 I-STAT CHLORIDE mmol/L 98-109 I-STAT BUN mg/dl 8-26 I-STAT GLUCOSE 79 mg/dl 70-105 I-STAT HEMATOCRIT % PCV 38-51 I-STAT HEMOGLOBIN g/dl 12.0-17.0 I-STAT EG 7+ - 02/03/19 12:03 I-STAT NA 140 mmol/ L 138-146 I-STAT K 4.4 mmol/ L 3.5-4.9 I-STAT HEMATOCRIT 33 % PCV 38-51 I-STAT HEMOGLOBIN 11.2 g/dl 12.0-17.0 I-STAT IONIZED CALCIUM 1.28 mmol /L 1.12- 1.32 I-STAT PH 7.32 7.35-7.45 I-STAT PCO2 50 mmHg 35-45 I-STAT PO2 243 mmHg 80-105 I-STAT TCO2 27 mmol/L 23-27 I-STAT BASE EXCESS -1 mmol/L -2-3 I-STAT O2 SATURATION 100 % 95-98 I-STAT FiO2 I-STAT HCO3 26 mmol/L 22-26 GLUCOSE, ACCUCHEK - 02/03/19 12:16 GLUCOSE (ACCUCHEK) 90 mg/dl 74-105 I-STAT 6+ - 02/03/19 13:18 I-STAT NA mmol/L 138-146 I-STAT K 4.6 mmol/ L 3.5-4.9 I-STAT CHLORIDE mmol/L 98-109 I-STAT BUN mg/dl 8- I-STAT GLUCOSE 97 mg/dl 70-105 I-STAT HEMATOCRIT % PCV 38-51 I-STAT HEMOGLOBIN g/dl 12.0-17.0 I-STAT 6+ - 02/03/19 14:26 I-STAT NA mmol/L 138-146 I-STAT K 4.3 mmol/ L 3.5-4.9 I-STAT CHLORIDE mmol/L 98-109 I-STAT BUN mg/dl 8-26 I-STAT GLUCOSE 122 mg/dl 70-105 I-STAT HEMATOCRIT % PCV 38-51 I-STAT HEMOGLOBIN g/dl 12.0-17.0 GLUCOSE, ACCUCHEK - 02/03/19 15:09 GLUCOSE (ACCUCHEK) 104 mg/dl 74-105 I-STAT 6+ - 02/03/19 15:56 I-STAT NA mmol/L 138-146 I-STAT K 4.3 mmol/ L 3.5-4.9 I-STAT CHLORIDE mmol/L 98-109 I-STAT BUN mg/dl 8- I-STAT GLUCOSE 109 mg/dl 70-105 I-STAT HEMATOCRIT % PCV 38-51 I-STAT HEMOGLOBIN g/dl 12.0-17.0 GLUCOSE, ACCUCHEK - 02/03/19 16:59 GLUCOSE (ACCUCHEK) 103 mg/dl 74-105 GLUCOSE, ACCUCHEK - 02/03/19 18:02 GLUCOSE (ACCUCHEK) 104 mg/dl 74-105 I-STAT EG 7+ - 02/03/19 18:21 I-STAT NA mmol/L 138-146 I-STAT K 4.3 mmol/ L 3.5-4.9 I-STAT HEMATOCRIT 38 % PCV 38-51 I-STAT HEMOGLOBIN 12.9 g/dl 12.0-17.0 I-STAT IONIZED CALCIUM mmol/L 1.12-1.32 I-STAT PH 7.36 7.35-7.45 I-STAT PCO2 38 mmHg 35-45 I-STAT PO2 83 mmHg 80-105 I-STAT TCO2 22 mmol/L 23-27 I-STAT BASE EXCESS -4 mmol/L -2-3 I-STAT O2 SATURATION 96 % 95-98 I-STAT FiO2 I-STAT HCO3 21 mmol/L 22-26 GLUCOSE, ACCUCHEK - 02/03/19 18:57 GLUCOSE (ACCUCHEK) 109 mg/dl 74-105 I-STAT 6 - 02/03/19 20:05 I-STAT NA mmol/L 138-146 I-STAT K 4.2 mmol/ L 3.5-4.9 I-STAT CHLORIDE mmol/L 98-109 I-STAT BUN mg/dl 8- I-STAT GLUCOSE 116 mg/dl 70-105 I-STAT HEMATOCRIT % PCV 38-51 I-STAT HEMOGLOBIN g/dl 12.0-17.0 I-STAT 6+ - 02/03/19 21:09 I-STAT NA mmol/L 138-146 I-STAT K 4.4 mmol/ L 3.5-4.9 I-STAT CHLORIDE mmol/L 98-109 I-STAT BUN mg/dl 8- I-STAT GLUCOSE 119 mg/dl 70-105 I-STAT HEMATOCRIT % PCV 38-51 I-STAT HEMOGLOBIN g/dl 12.0-17.0 GLUCOSE, ACCUCHEK - 02/03/19 22:24 GLUCOSE (ACCUCHEK) 128 mg/dl 74-105 I-STAT 6+ - 02/03/19 23:06 I-STAT NA mmol/L 138-146 I-STAT K 4.7 mmol/ L 3.5-4.9 I-STAT CHLORIDE mmol/L 98-109 I-STAT BUN mg/dl 8-26 I-STAT GLUCOSE 138 mg/dl 70-105 I-STAT HEMATOCRIT % PCV 38-51 I-STAT HEMOGLOBIN g/dl 12.0-17.0 GLUCOSE, ACCUCHEK - 02/04/19 00:19 GLUCOSE (ACCUCHEK) 118 mg/dl 74-105 GLUCOSE, ACCUCHEK - 02/04/19 01:01 GLUCOSE (ACCUCHEK) 122 mg/dl 74-105 I-STAT 6+ - 02/04/19 02:09 I-STAT NA mmol/L 138-146 I-STAT K 4.8 mmol/ L 3.5-4.9 I-STAT CHLORIDE mmol/L 98-109 I-STAT BUN mg/dl 8- I-STAT GLUCOSE 113 mg/dl 70-105 I-STAT HEMATOCRIT % PCV 38-51 I-STAT HEMOGLOBIN g/dl 12.0-17.0 GLUCOSE, ACCUCHEK - 02/04/19 03:14 GLUCOSE (ACCUCHEK) 107 mg/dl 74-105 GLUCOSE, ACCUCHEK - 02/04/19 04:06 GLUCOSE (ACCUCHEK) 120 mg/dl 74-105 BMP - BASIC METABOLIC PANEL - 02/04/19 0 5:02 GLUCOSE 129 mg/dl 74-106 BUN 24 mg/dl 7-18 CREATININE 1.53 mg/d l 0.70- 1.30 SODIUM (NA) 141 mEq/L 136-146 POTASSIUM, BLOOD 5.1 mEq/L 3.5-5.1 CHLORIDE 106 mEq/L 98-107 CO2 (BICARBONATE) 25 mEq/L 21-32 CALCIUM 8.8 mg/dl 8.5-10.1 eGFR mL/min >=59 MAGNESIUM - 02/04/19 05:02 MAGNESIUM 2.4 mg/dl 1.8-2.4 CBC NO DIFF (HEMOGRAM) - 02/04/19 05:02 WBC - WHITE CELL COUNT 19.8 X10( 3) uL 4.5- 11.0 RBC - RED CELL COUNT 4.72 X10( 6) uL 4.60-6.20 PLATELET COUNT 211 X10(3 ) uL 150- 450 HEMOGLOBIN 13.7 g/dl 13.5-18.0 HEMATOCRIT 43.5 % 40.0-54.0 MCV 92.2 fL 80.0-96.0 MCH 29 pg 27-31 MCHC 31.5 % 32.0-36.0 GLUCOSE, ACCUCHEK - 02/04/19 05:04 GLUCOSE (ACCUCHEK) 116 mg/dl 74-105 I-STAT EG 7+ - 02/04/19 05:06 I-STAT NA mmol/L 138-146 I-STAT K 5.0 mmol/ L 3.5-4.9 I-STAT HEMATOCRIT % PCV 38-51 I-STAT HEMOGLOBIN g/dl 12.0-17.0 I-STAT IONIZED CALCIUM 1.23 mmol /L 1.12- 1.32 I-STAT PH 7.35-7.45 I-STAT PCO2 mmHg 35-45 I-STAT PO2 mmHg 80-105 I-STAT TCO2 mmol/L 23-27 I-STAT BASE EXCESS mmol/L -2-3 I-STAT O2 SATURATION % 95-98 I-STAT FiO2 I-STAT HCO3 mmol/L 22-26 GLUCOSE, ACCUCHEK - 02/04/19 06:01 GLUCOSE (ACCUCHEK) 122 mg/dl 74-105 I-STAT EG 7+ - 02/04/19 06:19 I-STAT NA mmol/L 138-146 I-STAT K mmol/L 3.5-4.9 I-STAT HEMATOCRIT % PCV 38-51 I-STAT HEMOGLOBIN g/dl 12.0-17.0 I-STAT IONIZED CALCIUM mmol/L 1.12-1.32 I-STAT PH 7.31 7.35-7.45 I-STAT PCO2 43 mmHg 35-45 I-STAT PO2 80 mmHg 80-105 I-STAT TCO2 23 mmol/L 23-27 I-STAT BASE EXCESS -5 mmol/L -2-3 I-STAT O2 SATURATION 94 % 95-98 I-STAT FiO2 I-STAT HCO3 21 mmol/L 22- GLUCOSE, ACCUCHEK - 02/04/19 07:24 GLUCOSE (ACCUCHEK) 127 mg/dl 74-105 GLUCOSE, ACCUCH - 02/04/19 08:12 GLUCOSE (ACCUCHEK) 131 mg/dl 74-105 I-STAT 6+ - 02/04/19 08:14 I-STAT NA mmol/L 138-146 I-STAT K 4.6 mmol/ L 3.5-4.9 I-STAT CHLORIDE mmol/L 98-109 I-STAT BUN mg/dl 8-26 I-STAT GLUCOSE mg/dl 70-105 I-STAT HEMATOCRIT % PCV 38-51 I-STAT HEMOGLOBIN g/dl 12.0-17.0 GLUCOSE, ACCUCHEK - 02/04/19 09:18 GLUCOSE (ACCUCHEK) 129 mg/dl 74-105 BMP - BASIC METABOLIC PANEL - 02/04/19 1 1:15 GLUCOSE 141 mg/dl 74-106 BUN 24 mg/dl 7-18 CREATININE 1.43 mg/d l 0.70- 1.30 SODIUM (NA) 141 mEq/L 136-146 POTASSIUM, BLOOD 4.3 mEq/L 3.5-5.1 CHLORIDE 104 mEq/L 98-107 CO2 (BICARBONATE) 24 mEq/L 21-32 CALCIUM 8.8 mg/dl 8.5-10.1 eGFR mL/min >=59 I-STAT 6+ - 02/04/19 11:17 I-STAT NA mmol/L 138-146 I-STAT K 4.3 mmol/ L 3.5-4.9 I-STAT CHLORIDE mmol/L 98-109 I-STAT BUN mg/dl 8-26 I-STAT GLUCOSE 137 mg/dl 70-105 I-STAT HEMATOCRIT % PCV 38-51 I-STAT HEMOGLOBIN g/dl 12.0-17.0 GLUCOSE, ACCUCHEK - 02/04/19 15:03 GLUCOSE (ACCUCHEK) 165 mg/dl 74-105 GLUCOSE, ACCUCHEK - 02/04/19 20:51 GLUCOSE (ACCUCHEK) 105 mg/dl 74-105 CBC NO DIFF (HEMOGRAM) - 02/05/19 05:28 WBC - WHITE CELL COUNT 17.3 X10( 3) uL 4.5- 11.0 RBC - RED CELL COUNT 4.36 X10( 6) uL 4.60-6.20 PLATELET COUNT 164 X10(3 ) uL 150- 450 HEMOGLOBIN 12.6 g/dl 13.5-18.0 HEMATOCRIT 39.6 % 40.0-54.0 MCV 90.8 fL 80.0-96.0 MCH 29 pg 27-31 MCHC 31.8 % 32.0-36.0 BMP - BASIC METABOLIC PANEL - 02/05/19 0 5:28 GLUCOSE 132 mg/dl 74-106 BUN 21 mg/dl 7-18 CREATININE 1.22 mg/d l 0.70- 1.30 SODIUM (NA) 139 mEq/L 136-146 POTASSIUM, BLOOD 4.1 mEq/L 3.5-5.1 CHLORIDE 103 mEq/L 98-107 CO2 (BICARBONATE) 28 mEq/L 21-32 CALCIUM 9.1 mg/dl 8.5-10.1 eGFR mL/min >=59 MAGNESIUM - 02/05/19 05:28 MAGNESIUM 2.1 mg/dl 1.8-2.4 HOLD SPECIMEN FOR BLOOD BANK - 02/05/19 05:28 HOLD SPECIMEN FOR BLOOD BANK ARC I-STAT EG 7+ - 02/05/19 05:33 I-STAT NA mmol/L 138-146 I-STAT K mmol/L 3.5-4.9 I-STAT HEMATOCRIT % PCV 38-51 I-STAT HEMOGLOBIN g/dl 12.0-17.0 I-STAT IONIZED CALCIUM 1.21 mmol /L 1.12- 1.32 I-STAT PH 7.35-7.45 I-STAT PCO2 mmHg 35-45 I-STAT PO2 mmHg 80-105 I-STAT TCO2 mmol/L 23-27 I-STAT BASE EXCESS mmol/L -2-3 I-STAT O2 SATURATION % 95-98 I-STAT FiO2 I-STAT HCO3 mmol/L 22-26 GLUCOSE, ACCUCHEK - 02/05/19 09:39 GLUCOSE (ACCUCHEK) 114 mg/dl 74-105 GLUCOSE, ACCUCHEK - 02/05/19 14:22 GLUCOSE (ACCUCHEK) 107 mg/dl 74-105 GLUCOSE, ACCUCHEK - 02/05/19 20:33 GLUCOSE (ACCUCHEK) 110 mg/dl 74-105 CBC NO DIFF (HEMOGRAM) - 02/06/19 05:55 WBC - WHITE CELL COUNT 13.0 X10( 3) uL 4.5- 11.0 RBC - RED CELL COUNT 4.28 X10( 6) uL 4.60-6.20 PLATELET COUNT 184 X10(3 ) uL 150- 450 HEMOGLOBIN 12.4 g/dl 13.5-18.0 HEMATOCRIT 38.4 % 40.0-54.0 MCV 89.7 fL 80.0-96.0 MCH 29 pg 27-31 MCHC 32.3 % 32.0-36.0 MAGNESIUM - 02/06/19 05:55 MAGNESIUM 2.3 mg/dl 1.8-2.4 BMP - BASIC METABOLIC PANEL - 02/06/19 0 5:55 GLUCOSE 115 mg/dl 74-106 BUN 24 mg/dl 7-18 CREATININE 1.01 mg/d l 0.70- 1.30 SODIUM (NA) 138 mEq/L 136-146 POTASSIUM, BLOOD 4.0 mEq/L 3.5-5.1 CHLORIDE 103 mEq/L 98-107 CO2 (BICARBONATE) 27 mEq/L 21-32 CALCIUM 9.0 mg/dl 8.5-10.1 eGFR mL/min >=59 GLUCOSE, ACCUCHEK - 02/06/19 10:11 GLUCOSE (ACCUCHEK) 112 mg/dl 74-105 GLUCOSE, ACCUCHEK - 02/06/19 14:45 GLUCOSE (ACCUCHEK) 97 mg/dl 74-105 CBC NO DIFF (HEMOGRAM) - 02/07/19 04:00 WBC - WHITE CELL COUNT 10.6 X10( 3) uL 4.5- 11.0 RBC - RED CELL COUNT 4.38 X10( 6) uL 4.60-6.20 PLATELET COUNT 231 X10(3 ) uL 150- 450 HEMOGLOBIN 12.6 g/dl 13.5-18.0 HEMATOCRIT 38.9 % 40.0-54.0 MCV 88.8 fL 80.0-96.0 MCH 29 pg 27-31 MCHC 32.4 % 32.0-36.0 MAGNESIUM - 02/07/19 04:00 MAGNESIUM 2.1 mg/dl 1.8-2.4 BMP - BASIC METABOLIC PANEL - 02/07/19 0 4:00 GLUCOSE 105 mg/dl 74-106 BUN 34 mg/dl 7-18 CREATININE 1.07 mg/d l 0.70- 1.30 SODIUM (NA) 139 mEq/L 136-146 POTASSIUM, BLOOD 3.2 mEq/L 3.5-5.1 CHLORIDE 102 mEq/L 98-107 CO2 (BICARBONATE) 29 mEq/L 21-32 CALCIUM 8.9 mg/dl 8.5-10.1 eGFR mL/min >=59 Radiology Report from KATHRYNYoly on 07/24/19 15 14:15:00 DIAGNOSTIC MISAEL GING REPORT [facility] - [address] [address] PHONE #: [phone] FAX #: [phone] Name: FAISAL GARCIA Loc: [facility] Radiology No: [id number] : 1980 Age: 34 Sex: M Status: DEP ER Unit No: [id number] Phys: PAULA Sales VarshaCelia [employer] Acct: [id number] Reason For Exam: left leg pain Exam Date: 07/23/2014 EXAMS: CPT CODE: [id number] DOPPLER EXTR VENOUS LMTD 54847 REASON FOR EXAM: Lower lower extremity pain and swelling. Palpable mass in the left posterior fossa. COMPARISON: None. TECHNIQUE: Doppler, martin-scale and color-flow imaging of the lower lower extremity venous system was performed. FINDINGS: The common femoral vein, superficial femoral vein, profunda femoris, and popliteal veins are normal in appearance. The vessels show normal compressibility, color flow and doppler augmentation. The deep calf veins demonstrate no distinct intraluminal thrombus. Within the left popliteal fossa, there is an oval-shaped cystic focus containing heterogeneous internal debris measuring 6.4 x 6.0 cm. IMPRESSION: 1. No evidence of deep venous thrombosis. 2. 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 Findings were discussed with Yoselyn Maddox 07/23/2014 10:53 AM approximately. I have personally reviewed these images and have approved or corrected the resident physician's interpretation. at 1410 RESIDENT: CORNELIUS BOWEN MD Reported and signed by: OPAL MANZO MD CC: Erlin Brock MD Technologist: CRISTEL VIZCARRA Transcribed Date/Time: 07/23/2014 (9082)Traveling Storekeeper: [email or web address] Printed Date/Time: 07/23/2014 (9799) BATCH NO: N/A PAGE 1 Signed Report Radiology Report from KEITH on 2016 07:17:00 DIAGNOSTIC MISAEL GING REPORT [facility] - [address] [address] PHONE #: [phone] FAX #: [phone] Name: FAISAL GARCIA Loc: [facility] Radiology No: [id number] : 1980 Age: 36 Sex: M Status: DEP ER Unit No: [id number] Phys: Roney Neves MD Acct: [id number] Reason For Exam: ABD PAIN Exam Date: 07/29/2016 EXAMS: CPT CODE: [id number] CT ABD/PELVIS W/O CONTRAST 62856 REASON FOR EXAM: Right-sided flank pain. Time of the current examination: 07/29/2016 3:15 AM COMPARISON: No comparison is available TECHNIQUE: Helical images were obtained through the abdomen and pelvis without intravenous contrast. FINDINGS: CT Abdomen and Pelvis: The included lung bases are clear. There is a 3 mm stone at the right ureterovesicular junction with a Hounsfield unit determination of 245 (image 87 series 300). There is mild upstream hydroureter and hydronephrosis as well as periureteral fat stranding. Both kidneys are free of stones. No left-sided ureteral stones are seen. Urinary bladder is decompressed, limiting evaluation. The liver appears normal, without focal lesion Both kidneys are normal in appeara nce. There is no radiopaque stone within either kidney, or within the ureter or urinary bladder. The appearance of the spleen, pancreas, and adrenal glands are within normal limits. There is no mesenteric or retroperitoneal adenopathy. The small bowel and colon are normal in caliber. There is no pneumatosis or free intraperitoneal air. The appendix is visualized and is unremarkable. There is no ascites or loculated fluid collection in the abdomen or pelvis. There are no pelvic masses or adenopathy. Visualized skeletal structures demonstrate degenerative changes but no acute abnormality. Note that the evaluation of solid organs for masses is suboptimal on noncontrast enhanced exam. PAGE 1 Signed Report (CONTINUED) DIAGNOSTIC IMAGING REPORT [facility] - [address] [address] PHONE #: [phone] FAX #: [phone] Name: FAISAL GARCIA Loc: [facility] Radiology No: [id number] : 1980 Age: 36 Sex: M Status: DEP ER Unit No: [id number] Phys: Roney Neves MD Acct: [id number] Reason For Exam: freeman for Exam: ABD PAIN Exam Date: 07/29/2016 --------- EXAMS: CPT CODE: [id number] CT ABD/PELVIS W/O CONTRAST 48275 <Continued> IMPRESSION: 1. 3 mm stone at the right ureterovesicular junction with mild hydroureteronephrosis and periureteral fat stranding. 2. No bowel obstruction. No free air, ascites, or loculated collection. Henny Werner MD discussed findings with Roney Patel MD on 07/29/2016 3:20 AM approximately. I have personally reviewed these images and approved or corrected the resident physician's interpretation. at 0712 RESIDENT: SOLEDAD WERNER MD Reported and signed by: REJI FREGOSO MD CC: Erlin Brock MD Technologist: MARTHA BARRERA Transcribed Date/Time: 07/29/2016 (711)Traveling Storekeeper: [email or web address] Printed Date/Time: 07/29/2016 (716) BATCH NO: N/A PAGE 2 Signed Report Encounters ACCT No. Visit Date/Time Discharge Status Pt. Type Provider Facility Loc./Unit Complaint [id number] 01/28/2019 18:28:00 02/07/2019 12:50: 00 DIS Inpatient [facility] 110 HEART FAILURE, MITRAL REGURG ITATION [id number] 01/22/2019 08:32:00 01/22/2019 16:45: 00 DIS Outpatient [facility] 120 MITRAL REGURGE [id number] 03/15/2019 08:49:00 020 09:35:00 DIS Outpatient OLIVERIO CAI PA-C [facility] ELD-UCC [id number] 02/05/2018 14:38:00 018 23:59:59 CLS Outpatient OTHER, DOCTOR [facility] luis [facility] DI [id number] 03/19/2019 07:27:01 020 23:59:59 CLS Outpatient Sigifredo Jordan [id number] 09/04/2016 09:36:00 09/04/2016 23:5 9:59 CLS Outpatient BRAULIO HILL [id number] 04/15/2017 00:00:00 Document Registration [id number] 09/12/2016 00:00:00 Document Registration [id number] 09/11/2016 16:00:00 Document Registration [id number] 07/12/2019 17:50:[address] Emergency TOÑA NOE DO [facility] ER FS RT LEG PAIN [id number] 06/02/2013 08:13:00 Document Registration [id number] 08/01/2016 20:32:00 017 22:15:00 DIS Emergency [facility] [id number] 07/29/2016 16:59:00 017 13:24:00 DIS Outpatient Lizz MILLAN, Braulio [facility] W.8 [id number] 07/29/2016 01:02:00 017 03:42:00 DIS Emergency Jorge MILLAN, [facility] W.EDS [id number] 07/24/2014 20:24:00 015 22:56:00 DIS [facility] [id number] 07/23/2014 08:31:00 015 11:41:00 DIS Emergency Elsy HOLT, Feroz [facility]
--- NOTE | 2019-07-12 18:28 | ED Lower Extremity ---
General Chief Complaint: Lower Extremity Stated Complaint: RT LEG PAIN Nursing Triage Note: Noticed an abrasion, swelling, and ecchymosis on Rt lower leg. Denies injury or trauma to the area. States it is painful with movement. Nursing Sepsis Screen: No Definite Risk Source: patient Exam Limitations: no limitations History of Present Illness Date Seen by Provider: July 12, 2019 Time Seen by Provider: 18:17 Initial Comments 39-year-old male presents to the emergency room with a area of swelling and irritation on the right lower leg he denies any injuries he states that he does not believe this is from a brown recluse bite which she has experienced within the past. 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 He states that he has had heart surgery for mitral valve replacement in January 2019 he's had a left knee surgery 6 times right knee surgery has no surgery patient states he's had renal stones and surgery for renal stones in his right middle finger and his left fingers have as surgical repairs. Examination shows that there is a traumatic abrasion on the right lateral leg consistent with a blunt object abrupt hard because there is an ecchymoses that surrounds it goes down into the muscle tissue. I do not believe this is a brown recluse bite. Patient does have a mitral valve replaced and needs to be on antibiotics whenever there is any type of open lesion. Patient states he has no allergies to medications. Amoxicillin 500 mg were ordered and patient states that his last tetanus shot was greater than 5 years ago a TDap will be ordered Should be noted this dictation utilizes alike software. Efforts have been made to correct all errors. Some errors or able to penetrate the review process at this is not an intentional event. If you have any questions regarding this dictation please contact Ashvin Thomas [phone] Onset: just prior to arrival Pain/Injury Location: right leg Method of Injury: unknown (but patient does have obvious signs of trauma.) Modifying Factors: Improves With Movement Allergies and Home Medications Allergies Coded Allergies: No Known Drug Allergies (Unverified , 07/12/19) Patient Home Medication List Home Medication List Reviewed: Yes Review of Systems Constitutional: see HPI, other (soreness on the right lateral leg area with the patient had a blunt trauma that abraded the outer layer of the skin and bruise the surrounding tissues.) EENTM: see HPI, other (patient's had a mitral valve replaced 5 months ago.) Respiratory: no symptoms reported Cardiovascular: no symptoms reported (mitral valve has been replaced in January 2019 and no sounds of murmurs or leaks are identified.) Gastrointestinal: no symptoms reported Genitourinary: no symptoms reported Musculoskeletal: muscle pain, muscle stiffness (muscle swelling because of the blunt trauma to the lateral calf and leg area keep area clean and dry and ice f or swelling) Skin: change in color (abrasion to the lateral calf area) Psychiatric/Neurological: No Symptoms Reported Past [id number]-[id number] Hx Patient Social History Alcohol Use: Denies Use Recreational Drug Use: No Smoking Status: Never a Smoker 2nd Hand Smoke Exposure: No Recent Foreign Travel: No Contact w/Someone Who Travel: No Recent Infectious Disease Expo: No Recent Hopitalizations: No Seasonal Allergies Seasonal Allergies: No Past Medical History Surgeries: Yes (ureteral scope; mitral valve repair ) Adenoidectomy, Orthopedic, Tonsillectomy Respiratory: No Cardiac: Yes Hypertension Neurological: No Genitourinary: No Gastrointestinal: No Musculoskeletal: No Endocrine: No HEENT: No Cancer: No Psychosocial: No Integumentary: No Blood Disorders: No Adverse Reaction/Blood Tranf: No Family Medical History Reviewed Nursing Family Hx Physical Exam Vital Signs Vital Signs - First Documented 07/12/19 17:58 Temp 36.9 Pulse 60 Resp 16 B/P (MAP) 145/71 (95) Pulse Ox 97 Capillary Refill : Less Than 3 Seconds Height, Weight, BMI Height: '" Weight: lbs. oz. kg; 33.00 BMI Method: General Appearance: mild distress (from lateral leg abrasion and contusion) HEENT: PERRL/EOMI, normal ENT inspection, pharynx normal Neck: non-tender, full range of motion, supple, normal inspection Cardiovascular: normal peripheral pulses (scar from the mitral valve rep lacement still obvious), regular rate, rhythm, no edema, no gallop, no JVD, no murmur Respiratory: chest non-tender, lungs clear, normal breath sounds, no respiratory distress, no accessory muscle use Gastrointestinal: normal bowel sounds, non tender, soft, no organomegaly, no pulsatile mass Back: normal inspection, no CVA tenderness, no vertebral tenderness Hips: bilateral hip non-tender, bilateral hip normal inspection, bilateral hip normal range of motion Legs: left leg non-tender, left leg normal inspection, left leg normal range of motion, left leg no evidence of injury; right leg abrasions, right leg pain, right leg swelling (most likely from blunt trauma with an abrasion on the right lateral leg) Knees: bilateral knee non-tender, bilateral knee normal inspection, bilateral knee normal range of motion Ankles: bilateral ankle non-tender, bilateral ankle normal inspection, bilateral ankle normal range of motion Feet: bilateral foot non-tender, bilateral foot normal inspection, bilateral foot normal range of motion Reflexes: 2+ knee (R), 2+ knee (L) Neurologic/Tendon: normal sensation, normal motor functions, normal tendon functions (patient has a blunt trauma contusion with a mild abrasion on the lateral aspect of the right leg) Neurologic/Psychiatric: veneer matcher II-XII nml as tested, no motor/sensory deficits, alert, normal mood/affect, oriented x 3 Skin: normal color, warm/dry Lymphatic: no adenopathy Progress/Results/Core Measures Results/Orders Vital Signs/I&O 07/12/19 17:58 Temp 36.9 Pulse 60 Resp 16 B/P (MAP) 145/71 (95) Pulse Ox 97 Blood Pressure Mean: 95 Departure Impression Primary Impression: Contusion of leg, right Additional Impressions: Mitral valve replaced Need for tetanus booster Disposition: HOME, SELF-CARE Condition: Improved Departure-Patient Inst. Referrals: NO,LOCAL PHYSICIAN (PCP) Primary Care Physician Patient Instructions: Contusion (DC), Diphtheria and Tetanus Toxoids, and Acellular Pertussis Vaccine, Mitral Valve Replacement, Heart Valve Replacement (DC), Tdap Vaccine Add. Discharge Instructions: 39-year-old male presents with contusion to the lateral left leg with a small abrasion. His last tetanus shot was more than 5 years ago and acellular DTaP was given to the patient. Additionally the patient had a mitral valve replacement 5 months ago and whenever there is a significant break in the skin and he needs to protect himself with amoxicillin 500 mg this has been ordered for the patient. Patient will follow up with his primary care provider for ongoing care and evaluation. All discharge instructions reviewed with patient and/or family. Voiced understanding. Scripts Amoxicillin (Amoxicillin) 500 Mg Capsule 500 MG PO TID for 5 Days, #15 CAP 0 Refills Prov: ASHVIN THOMAS DO 07/12/19 ASHVIN THOMAS DO July 12, 2019 18:28
[2019-07-12] MEDS ORDERED: AMOX500C2 PO (18:42)
[2019-07-12] MEDS ORDERED: AMOXICILLIN 500 MG (POLYMOX) CAP PO STA (18:44)
[2019-07-12] MEDS ORDERED: TETANUS,DIPTH,PERTUSS P/F (BOOSTRIX) 0.5 ML VIAL IM ONE (18:45)
[2019-07-12 18:58] VITALS: BP 136/82
== END 2019-07-12 18:58 | disposition home or self-care (01) ==
LOC: ER FS 17:50
DX: S80.11XA Contusion of right lower leg, initial encounter (principal); Z95.4 Presence of other heart-valve replacement; Z23 Encounter for immunization; X58.XXXA Exposure to other specified factors, initial encounter
CPT/HCPCS: 90471; 90715; 99284

== ENCOUNTER 2020-01-22 19:37 | Emergency (ER) | payer BC ==
[~2020-01-22] VITALS: Ht 182.8 cm; Wt 119.3 kg
[~2020-01-22 19:37] MED LIST: AMOX500C2 PO
--- NOTE | 2020-01-22 19:59 | ED Upper Extremity ---
General Chief Complaint: Laceration Stated Complaint: RIGHT FINGER LACERATION Nursing Triage Note: Patient states that he was skinning a deer and cut his finger. Patient has a small laceration on his right index finger. Bleeding is controlled. Nursing Sepsis Screen: No Definite Risk Source: patient Exam Limitations: no limitations History of Present Illness Date Seen by Provider: Jan 22, 2020 Time Seen by Provider: 19:54 39-year-old male with a past medical history significant for hypertension, previous heart surgery presented to the emergency department after he sustained a laceration to his right second digit when he was cleaning a deer with a field knife. Injury occurred proximately 15 minutes prior to arrival. He denies any numbness or loss of function of the second digit of his right hand. 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 Patient is right-hand dominant. 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 Reports being fully vaccinated when younger. He is unsure of when his last tetanus shot was. Allergies and Home Medications Allergies Coded Allergies: No Known Drug Allergies (Unverified , 07/12/19) Home Medications Amoxicillin 500 Mg Capsule, 500 MG PO TID Prescribed by: TOÑA NOE on 07/12/19 7520 Patient Home Medication List Home Medication List Reviewed: Yes Review of Systems Constitutional: no symptoms reported EENTM: see HPI Respiratory: see HPI Skin: other (Laceration to the right second digit) Past Xfyoboh-Rocdil-Ddvmrg Hx Patient Social History Alcohol Use: Denies Use Recreational Drug Use: No Smoking Status: Never a Smoker 2nd Hand Smoke Exposure: No Recent Foreign Travel: No Contact w/Someone Who Travel: No Recent Infectious Disease Expo: No Recent Hopitalizations: No Physical Abuse: No Sexual Abuse: No Mistreated: No Fear: No Seasonal Allergies Seasonal Allergies: No Past Medical History Surgeries: Yes (ureteral scope; mitral valve repair ) Adenoidectomy, Orthopedic, Tonsillectomy Respiratory: No Cardiac: Yes Hypertension Neurological: No Genitourinary: No Gastrointestinal: No Musculoskeletal: No Endocrine: No HEENT: No Cancer: No Psychosocial: No Integumentary: No Blood Disorders: No Adverse Reaction/Blood Tranf: No Physical Exam Vital Signs Vital Signs - First Documented 01/22/20 19:42 Temp 37.0 Pulse 74 Resp 16 B/P (MAP) 158/81 (106) Pulse Ox 96 O2 Delivery Room Air Capillary Refill : Less Than 3 Seconds Height, Weight, BMI Height: '" Weight: lbs. oz. kg; 35.00 BMI Method: General Appearance: WD/WN, no apparent distress HEENT: PERRL/EOMI Neck: supple Cardiovascular: regular rate, rhythm Respiratory: no respiratory distress Gastrointestinal: No distended Back: normal inspection Shoulder: normal inspection Elbow/Forearm: normal inspection Wrist: Yes normal inspection Neurologic/Psychiatric: no motor/sensory deficits Skin: other (Patient has a linear 2 cm laceration with exposed subcutaneous tissue without obvious tendon or arterial involvement located at the middle phalanx located on the radial aspect wrapping around to the palmar aspect of the finger. He has normal range of motion and strength to resistance with flexion and extension of the digit. Capillary refill is less than 3 seconds, normal sensation in the digit.) Procedures/Interventions Wound Location: Upper Extremities (Second digit of the right hand.) Other Wound Location 2 cm, radial aspect of the middle phalanx wrapping around to the palmar aspect of the second digit. Linear. Wound Length (cm): 2 Wound's Depth, Shape: sub Q Wound Explored: no foreign body removed Betadine Prep?: No Suture: Ethlion Suture Size: 4-0 Number of Sutures: 2 Layer Closure?: 1 Number Deep Layer Sutures: 0 Sterile Dressing Applied?: No Progress Wound was anesthetized with let gel, the wound was irrigated with running water at the sink. Two 4-0 monofilament sutures were placed in simple interrupted fashion. The wound was explored and no tendon involvement was appreciated, arterial or other vascular involvement. He had full range of motion pre and post suture placement. Progress/Results/Core Measures Results/Orders My Orders Orders - ZARI SÁNCHEZ MD Tetanus/Diphtheria Inj (Adult) (Tenivac (01/22/20 20:00) Let Solution (Let Solution) (01/22/20 20:00) Medications Given in ED Current Medications Medications Dose Ordered Sig/Cora Route Start Time Stop Time Status Last Admin Dose Admin Tetanus/ Diphtheria Toxoids 0.5 ml ONCE ONCE IM 01/22/20 20:00 01/22/20 20:01 DC 01/22/20 20:06 0.5 ML Tetracaine/ Epinephrine/ Lidocaine 3 ml ONCE ONCE TOP 01/22/20 20:00 01/22/20 20:01 DC 01/22/20 20:06 3 ML Vital Signs/I&O 01/22/20 19:42 Temp 37.0 Pulse 74 Resp 16 B/P (MAP) 158/81 (106) Pulse Ox 96 O2 Delivery Room Air Blood Pressure Mean: 106 Progress Progress Note : Progress Note Patient had a small to centimeter laceration without any tendon or vascular involvement there was neurologically intact to the second digit of the right hand. Wound was irrigated, no foreign bodies were appreciated. The wound was closed with 2 simple interrupted sutures. He will follow-up with his primary care provider or the [facility] for suture removal in 7 to 10 days. Infection symptoms were discussed along with return precautions.The wound was dressed with triple antibiotic ointment and a Band-Aid. Patient's tetanus shot was updated in the emergency department. Patient was in agreement with the plan of care. Departure Impression Primary Impression: Laceration of finger without complication Qualified Codes: S61.219A - Laceration without foreign body of unspecified finger without damage to nail, initial encounter Disposition: HOME, SELF-CARE Condition: Stable Departure-Patient Inst. Decision time for Depature: 21:00 Referrals: NO,LOCAL PHYSICIAN (PCP) Primary Care Physician [facility] Patient Instructions: Laceration Repair With Stitches (DC) Add. Discharge Instructions: You work seen in the emergency department for a laceration to your finger. This was repaired with 2 sutures in the emergency department and they need to be removed in 7 to 10 days. This can be done by your primary care provider or at the [facility] . Please watch for signs of infection including redness, drainage from the wound. If the symptoms develop, please contact your primary care provider to have the wound reassessed. You can use Tylenol for pain control. Please avoid submerging your hand in water until the sutures have been removed. It is okay to wash your hands with soap and water in the meantime. You can also apply topical antibiotic ointment daily to the wound for the next 3 to 5 days. All discharge instructions reviewed with patient and/or family. Voiced understanding. ZARI SÁNCHEZ MD Jan 22, 2020 19:59
[2020-01-22] MEDS ORDERED: L.E.T. SOLUTION 3 ML SYR TOP ONE (20:00)
[2020-01-22] MEDS ORDERED: TETANUS & DIPHTHERIA TOX,ADULT 0.5 ML (TENIVAC) IM ONE (20:00)
[2020-01-22 21:06] VITALS: BP 158/81
== END 2020-01-22 21:06 | disposition home or self-care (01) ==
LOC: EDUNIT# 19:37 → ER FS 19:39
DX: S61.210A Laceration without foreign body of right index finger without damage to nail, initial encounter (principal); Z23 Encounter for immunization; W26.0XXA Contact with knife, initial encounter
CPT/HCPCS: 90714; 99284

== ENCOUNTER → 2020-02-07 | Outpatient (CLI) | payer BC ==
[2020-02-07 16:29] LABS: HEMOGLOBIN 12.8 G/DL (13.3-17.7); WHITE BLOOD COUNT 13.1 10^3/uL (4.3-11.0)
[2020-02-08 07:55] LABS: PHOSPHORUS 3.5 MG/DL (2.3-4.7)
[2020-02-09 08:01] LABS: ALBUMIN 3.7 GM/DL (3.2-4.5); BUN/CREATININE RATIO 16; CALCIUM 8.7 MG/DL (8.5-10.1); CARBON DIOXIDE 20 MMOL/L (21-32); CHLORIDE 107 MMOL/L (98-107); CREATININE SERUM 1.02 MG/DL (0.60-1.30); GFR ESTIMATED > 60; GLUCOSE 113 MG/DL (70-105); POTASSIUM 4.2 MMOL/L (3.6-5.0); SODIUM 140 MMOL/L (135-145)
== END ==
LOC: LAB FS 16:02
PROVIDERS: ATTEND Specialist
DX: N18.5 Chronic kidney disease, stage 5 (principal)
CPT/HCPCS: 36415; 80069; 85027